=== PATIENT | male | born 1980 | race Asian ===

== ENCOUNTER 2021-12-06 00:41 | Emergency (ER) | payer SELFPAY ==
[2021-12-06 00:52] VITALS: BP 136/81; PULSE 61; RESP 16; TEMP 36.3; O2SAT 97; BMI 24.3
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
== END 2021-12-06 02:46 | disposition home or self-care (01) ==
PROVIDERS: Emergency Provider Physician Assistant
DX: S99.911A Unspecified injury of right ankle, initial encounter (principal); F17.210 Nicotine dependence, cigarettes, uncomplicated; V89.2XXA Person injured in unspecified motor-vehicle accident, traffic, initial encounter
CPT/HCPCS: 71045; 73610; 99283; E0114

== ENCOUNTER 2022-05-17 06:03 | Outpatient (CLI) | payer OTHER, SELFPAY ==
--- NOTE | 2022-05-17 06:30 | US_ITS ---
WS: [id number] RIGHT UPPER QUADRANT ULTRASOUND HISTORY: abdominal pain COMPARISON: None available. Liver: 14.9 cm in length. Normal size liver. Coarse echotexture. No mass or bile duct dilatation. Portal Vein: Normal hepatopetal flow with monophasic waveform. Gallbladder: Multiple overlapping folds of the gallbladder but no stones or abnormality identified. CBD: 0.2 cm Pancreas: Body is normal. Tail and head are partially obscured. Right kidney: 11.0 cm in length. Normal size and echogenicity. No hydronephrosis or mass. Aorta and IVC: Unremarkable abdominal aorta and IVC. No ascites. US/US gall bladder [id number] IMPRESSION: 1. Mildly heterogeneous liver probably due to hepatic steatosis. 2. No gallbladder abnormality identified.
== END 2022-05-17 06:04 | disposition home or self-care (01) ==
LOC: RAD 06:06
PROVIDERS: Visit Provider Surgery
DX: R10.9 Unspecified abdominal pain (principal)
CPT/HCPCS: 76705

== ENCOUNTER 2022-05-19 05:41 | Day surgery (SDC) | payer OTHER, SELFPAY ==
[2022-05-17 12:37] VITALS: BMI 24.3
[2022-05-19 06:02] VITALS: BP 121/75; PULSE 57; RESP 17; TEMP 36.1; O2SAT 97
[2022-05-19] MEDS: sodium chloride 0.9% 1,000 ML 30 ML IV (06:09)
--- NOTE | 2022-05-19 06:43 | PM.HP ---
Providers/Chief Complaint Primary Care Provider: Dylan Cordero DO Chief Complaint: R10.9, R19.7 History of Present Illness Natalie Hartley is a 42 year old male here for EGD and colonoscopy Medications/Allergies Home Medications Medication Instructions Recorded Confirmed Last Taken Type No Known Home Medications 05/17/22 05/17/22 Unknown History Allergies Allergy/AdvReac Type Severity Reaction Status Date / Time No Known Allergies Allergy Verified 05/19/22 06:02 PFSH Acute PFSH: Surgical History H/O esophagogastroduodenoscopy Status post colonoscopy Family History Denies family history of Anesthesia complication Bleeding disorder Social History Smoking and tobacco status: current every day smoker Second hand smoke exposure: No Vitals/I&O/Wt Last Vital Signs Temp 97.0 F L 05/19/22 06:02 Pulse 57 L 05/19/22 06:02 Resp 17 05/19/22 06:02 BP 121/75 05/19/22 06:02 Pulse Ox 97 05/19/22 06:02 O2 Del Method 05/19/22 06:02 Weight last 48 hrs Weight 160 lb A&P Assessment and plan (1) Abdominal pain: (2) Diarrhea: Plan EGD and colonoscopy Attestations Medical Necessity Statement*: Home Coding Level of Care Code Acute Code for Chg Fwd Diagnoses Abdominal pain R10.9 Diarrhea R19.7
--- NOTE | 2022-05-19 06:51 | ANES.PREANE2 ---
Pre-Anesthetic Assessment Height/Weight: Height 1.73 m Weight 72.575 kg Temp Pulse Resp BP Pulse Ox O2 Del Method 97.0 F L 57 L 17 121/75 97 05/19/22 06:02 05/19/22 06:02 05/19/22 06:02 05/19/22 06:02 05/19/22 06:02 05/19/22 06:02 Preop Diagnosis: Bloating, abd pain Operation Date: 05/19/22 07:00 Proposed Procedures p egd colon [id number],R10.9,R19.7(Not Applicable) - Dylan Cordero DO s Colonoscopy(Not Applicable) - Dylan Cordero DO Was Beta Juan taken within 24 hours: N/A Was Clonidine taken within 24 hours: N/A Last intake: Intake Last Liquid Date 05/18/22 Last Liquid Time 21:00 Last Solid Date 05/17/22 Last Solid Time 20:00 Social No alcohol and No tobacco Exam alert, oriented x 3, clear to auscultation bilaterally and regular rate & rhythm History/ROS No significant history except as noted and No significant complaints Pulmonary None reported CV/HEM None reported None reported Hepatic None reported GI Gastroesophageal Reflux Disease Metabolic None reported Musc/skel None reported Neuropsych None reported Anesthetic Plan ASA status: 2 Anesthesia: Anesthesia Evaluation and MAC Risk of > 500 ml blood loss (7ml/kg in children): No Medications/Allergies Home Medications Medication Instructions Recorded Confirmed Last Taken Type No Known Home Medications 05/17/22 05/17/22 Unknown History Allergies Allergy/AdvReac Type Severity Reaction Status Date / Time No Known Allergies Allergy Verified 05/19/22 06:02 Current Medications Generic Name Dose Route Start Last Admin Trade Name Freq PRN Reason Stop Dose Admin Sodium Chloride 1,000 mls @ 30 mls/hr 05/19/22 06:00 05/19/22 06:09 Sodium Chloride 0.9% IV 05/20/22 05:59 30 mls/hr .Q24H JASON Administration PFSH Anesthesia Surgical History H/O esophagogastroduodenoscopy Status post colonoscopy Family History Denies family history of Anesthesia complication Bleeding disorder Social History Smoking and tobacco status: current every day smoker Second hand smoke exposure: No Data Anesthesia Cardiac Studies: No Data to Display
[2022-05-19 07:25] VITALS: BP 98/72; PULSE 83; RESP 20; TEMP 36.2; O2SAT 98
[2022-05-19 07:35] VITALS: BP 120/83; PULSE 80; RESP 17; O2SAT 100
--- NOTE | 2022-05-19 14:07 | ANE.PACU2 ---
Inpatient post-anesthesia follow up: Airway intact: Yes Vital signs: Temperature 97.2 F Pulse Rate 80 Respiratory Rate 17 Blood Pressure 120/83 Pulse Oximetry 100 Oxygen Delivery Me thod Nasal Cannula Oxygen Flow Rate 2 Fraction of Inspir ed Oxygen Hydration adequate: Yes Nausea and vomiting: No Pain level: 2 Mental status: Baseline
== END 2022-05-19 07:51 | disposition home or self-care (01) ==
PROVIDERS: PCP Surgery; Visit Provider Surgery
PROC: 0DJ08ZZ Inspection of Upper Intestinal Tract, Via Natural or Artificial Opening Endoscopic (ICD-10-PCS; CPT 43235; principal; 2022-05-19 07:00)
PROC: 0DJD8ZZ Inspection of Lower Intestinal Tract, Via Natural or Artificial Opening Endoscopic (ICD-10-PCS; CPT 45378; 2022-05-19 07:00)
DX: R10.9 Unspecified abdominal pain (principal); B96.81 Helicobacter pylori [H. pylori] as the cause of diseases classified elsewhere; K52.9 Noninfective gastroenteritis and colitis, unspecified; K29.00 Acute gastritis without bleeding; K21.9 Gastro-esophageal reflux disease without esophagitis; F17.210 Nicotine dependence, cigarettes, uncomplicated
CPT/HCPCS: 43239; 45380; 82274; 83630; 87493; 87506; 88305; J2704; J3490; J7030

== ENCOUNTER 2022-09-20 22:10 | Emergency (ER) | payer OTHER, SELFPAY ==
[2022-09-20 22:22] VITALS: BP 142/79; PULSE 72; RESP 14; TEMP 36.6; O2SAT 96; BMI 24.5
--- NOTE | 2022-09-20 22:34 | ED_ITS ---
HPI - General Adult General: Chief complaint: General Medical Stated complaint: itchy skin no rash Time Seen by Provider: 09/20/22 22:34 History of Present Illness: 42-year-old male patient comes in today with complaints of itchy skin with rash. Patient scratches at his skin causing hives to develop. Daughter translates for the patient because Kyr[place]z is his second language and he is fair and understanding. Daughter states that patient gets this often but has had difficulty controlling it with Zyrtec. Patient appears nontoxic. Patient takes no routine medications. Associated symptoms: Reports rash; Deny chest pain, dyspnea or vomiting Review of Systems Const: Denies: fever(s) ENMT: Denies: throat pain Card: Denies: chest pain Resp: Denies: dyspnea GI: Denies: vomiting Skin/Breast: Reports: rash and pruritus PFS ED PFSH: Medical History (Updated 09/20/22 @ 22:54 by SANGITA Lopez) Helicobacter pylori gastritis Surgical History H/O esophagogastroduodenoscopy Status post colonoscopy Family History Denies family history of Anesthesia complication Bleeding disorder Social History Smoking and tobacco status: current every day smoker Second hand smoke exposure: No Physical Exam Const: COMMON NORMALS: alert HENMT: COMMON NORMALS: normocephalic HEAD & SCALP: normocephalic Neck/C-Spine: COMMON NORMALS: full ROM Resp: COMMON NORMALS: normal respiratory effort and clear to auscultation bilaterally AUSCULTATION: clear to auscultation bilaterally Cardio: COMMON NORMALS: regular rate and regular rhythm RATE: regular rate RHYTHM: regular rhythm GI: COMMON NORMALS: Soft to palpation PALPATION: Yes Soft to palpation Extremity: COMMON NORMALS: normal to inspection Neuro: SENSORIUM/ORIENTATION: Yes alert Skin: RASHES: rashes noted (Urticarial, develops with scratching) Course Vital Signs: Vital signs: Vital Signs Temperature 97.8 F 09/20/22 22:22 Pulse Rate 64 09/20/22 22:37 Respiratory Rate 18 09/20/22 22:37 Blood Pressure 127/86 09/20/22 22:37 Pulse Oximetry 94 09/20/22 22:37 Oxygen Delivery Me thod Room Air 09/20/22 22:37 MDM - General Adult Medical Decision Making Patient comes in with itchiness to the skin and scratching. On exam patient has some urticaria but develops where patient has scratched. Airway is open. Lungs are clear to auscultation. Abdomen soft nontender. Skin is warm and dry. Vital signs are normal. Differential diagnosis includes but not limited to allergic reaction, urticaria graphica, atopic dermatitis. Believe patient probably has increased and histamine secondary to the high pollen counts in the atmosphere which is caused him to develop urticarial rash and itching. Patient will be started on hydroxyzine to help with itching and rash. Patient was also given a dose of steroid to help decrease immune response to the allergens. Patient reported understanding through his daughter as cost consultant and all questions were answered. Discharge Plan Discharge Patient Disposition: Home Clinical Impression: Urticaria geographica Condition: Stable Prescriptions: New hydroxyzine HCl 25 mg tablet 25 mg PO Q6H PRN (Reason: itching and rash) Qty: 60 0RF prednisone 20 mg tablet 20 mg PO DAILY Qty: 7 0RF No Action amoxicillin 500 mg capsule 1,000 mg PO BID 14 Days Qty: 56 0RF clarithromycin 500 mg tablet 500 mg PO BID 14 Days Qty: 28 0RF pantoprazole [Protonix] 40 mg tablet,delayed release (DR/EC) 40 mg PO BID 14 Days Qty: 28 0RF Protonix 40 mg tablet,delayed release (DR/EC) 40 mg PO BID 42 Days Qty: 84 1RF Discharge Orders: Discharge ED (Routine); Ordered 09/20/22 Ordered By: Claudio Myers Referrals: Dylan Cordero DO [Primary Care Provider] - Discharge Diet: Usual diet Discharge Activity: Increase activity as tolerated Patient Instructions: Urticaria (ED) Activity Restrictions/Additional Instructions: Drink plenty of water. Take medication as directed. You may use cetirizine, Zyrtec, 1 or 2 tablets twice a day for control of itching and rash. Use hydroxyzine 1 tablet every 6 hours as needed for breakthrough itching or rash. Take prednisone 20 mg daily for the next 7 days. Follow-up with primary care for recheck and possible further evaluation for allergens. Return to ER for worsening symptoms such as severe chest pain, increased shortness of breath, or new concerns. 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
[2022-09-20 22:37] VITALS: BP 127/86; PULSE 64; RESP 18; O2SAT 94
[2022-09-20] MEDS: dexamethasone 10 mg/mL INJ IM (23:00)
[2022-09-20] MEDS: famotidine 20 mg Tablet 40 MG PO (23:00)
[2022-09-20] MEDS: hyDROXYzine 25 mg Capsule 50 MG PO (23:00)
[2022-09-20 23:11] VITALS: BP 112/86; PULSE 51; RESP 18; O2SAT 95
== END 2022-09-20 23:14 | disposition home or self-care (01) ==
PROVIDERS: Emergency Provider Nurse Practitioner Family; PCP Surgery
DX: L50.3 Dermatographic urticaria (principal)
CPT/HCPCS: 96372; 99284; J1100

== ENCOUNTER → 2023-12-01 14:31 | Outpatient (BNVA) | payer OTHER, SELFPAY | PROVIDERS: Visit Provider Nurse Practitioner Family | DX: L50.8 Other urticaria (principal) | CPT/HCPCS: 36415; 80053; 84432; 84439; 84443; 85025; 86038; 86376; 86800 ==

== ENCOUNTER 2023-12-26 07:00 | Outpatient (CLI) | payer OTHER, SELFPAY ==
--- NOTE | 2023-12-26 | USR_ITS ---
PROCEDURE INFORMATION: Exam: US Soft Tissue Head and Neck, Thyroid Exam date and time: 12/26/2023 2:15 PM Age: 43 years old Clinical indication: Abnormal findings; Abnormal thyroid lab test; Additional info: Elevated serum thyrogloutin TECHNIQUE: Imaging protocol: Real-time ultrasound scan of the neck with image documentation. Exam focused on the thyroid. COMPARISON: No relevant prior studies available. FINDINGS: Right thyroid lobe: Right lobe: 5 x 1.3 x 1.9 cm. Left thyroid lobe: Left lobe: 4.8 x 1.2 x 1.4 cm. Isthmus: No nodules. US/US thyroid [id number] IMPRESSION: Normal thyroid ultrasound.
== END 2023-12-26 07:01 | disposition home or self-care (01) ==
LOC: RADOUTREAD 12-27 06:42
PROVIDERS: Visit Provider Nurse Practitioner Family
DX: R77.8 Other specified abnormalities of plasma proteins (principal)